=== PATIENT | male | born 1990 | race Caucasian/White ===

== ENCOUNTER 2021-04-26 15:05 | Emergency (ER) | payer OTHER, SELFPAY ==
[2021-04-26 15:27] VITALS: BP 114/71; PULSE 98; RESP 20; TEMP 36.9; O2SAT 98; BMI 20.9
== END 2021-04-26 17:20 | disposition left against medical advice (07) ==
PROVIDERS: Emergency Provider Emergency Medicine
DX: R51.9 Headache, unspecified (principal); M54.2 Cervicalgia; S51.012A Laceration without foreign body of left elbow, initial encounter; V23.4XXA Motorcycle driver injured in collision with car, pick-up truck or van in traffic accident, initial encounter; Y93.89 Activity, other specified; Y92.481 Parking lot as the place of occurrence of the external cause; Y99.9 Unspecified external cause status
CPT/HCPCS: 99281; 99282